=== PATIENT | female | born 1990 | race African-American/Black ===

== ENCOUNTER 2017-04-02 11:21 | Emergency (ER) | payer OTHER ==
[~2017-04-02] VITALS: Ht 165.1 cm; Wt 61.2 kg
[2017-04-02] MEDS ORDERED: NKM (11:23)
[2017-04-02 11:39] VITALS: BP 133/74
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
[2017-04-02 13:07] LABS: BASOPHILS % (AUTO) 0.7 % (0.0-2.0); EOSINOPHILS % (AUTO) 0.2 % (0.0-3.0); LYMPHOCYTES % (AUTO) 9.3 % (20.0-45.0); MEAN CORPUSCULAR HEMOGLOBIN 26.9 PG (27.0-31.0); MEAN CORPUSCULAR HGB CONC 31.4 G/DL (32.0-36.0); MEAN CORPUSCULAR VOLUME 86 FL (80-99); MEAN PLATELET VOLUME 8.3 FL (6.5-10.1); MONOCYTES % (AUTO) 5.5 % (1.0-10.0); NEUTROPHILS % (AUTO) 84.3 % (45.0-75.0); PLATELET COUNT 243 K/UL (150-450); RED CELL DISTRIBUTION WIDTH 12.3 % (11.6-14.8)
[2017-04-02 13:07] LABS: APPEARANCE,URINE TURBID; KETONES,URINE 3+ (NEGATIVE); LEUKOCYTE ESTERASE ,URINE 1+ (NEGATIVE); NITRITE,URINE NEGATIVE (NEGATIVE); PH,URINE 5 (4.5-8.0); PROTEIN,URINE 2+ (NEGATIVE); UROBILINOGEN,URINE 1 MG/DL (0.0-1.0)
[2017-04-02 13:18] LABS: ACETAMINOPHEN < 10 ug/mL (10-30); ALANINE AMINOTRANSFERASE 8 U/L (3-33); ALBUMIN/GLOBULIN RATIO 1.6 (1.0-2.7); ALCOHOL < 10 mg/dL; ANION GAP 16 (5-15); ASPARTATE AMINO TRANSFERASE 14 U/L (5-40); CALCIUM 9.8 mg/dL (8.6-10.2); CARBON DIOXIDE 25 mEQ/L (20-30); CHLORIDE 100 mEQ/L (98-107); CREATININE 0.7 mg/dL (0.5-0.9); GLOMERULAR FILTRATION RATE > 60 mL/min (>60); HEMOLYSIS 2; POTASSIUM 3.3 mEQ/L (3.4-4.9); SODIUM 141 mEQ/L (135-145); TOTAL PROTEIN 8.1 g/dL (6.6-8.7)
[2017-04-02 13:32] LABS: RBC,URINE 0-2 /HPF (0 - 2)
[2017-04-02 13:33] LABS: BACTERIA,URINE FEW /HPF; GRANULAR CASTS,URINE 0-2 /LPF; MUCUS,URINE MODERATE /LPF (NONE/OCC); SQUAMOUS EPITHELIAL CELL,UR MODERATE /LPF (NONE/OCC)
[2017-04-02 14:00] LABS: BILIRUBIN,DIRECT 0.2 mg/dL (0.1-0.3)
[2017-04-02] MEDS ORDERED: NITROFURANTOIN100 M2 ORAL (14:48)
[2017-04-02 17:17] VITALS: BP 129/77
[2017-04-02 21:09] VITALS: BP 132/74
[2017-04-02 23:00] VITALS: BP 128/76
[2017-04-03] VITALS (8 sets, daily range): BP systolic 94–133; BP diastolic 60–78
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
--- NOTE | 2017-04-03 11:38 | General Progress Note ---
Assessment/Plan Status: not improved Assessment/Plan zyprexa 10mg daily cont looking for psych as pt has hx of noncompliance no imminent dts/dto d/w with ED doctor Subjective Constitutional: Reports: no symptoms, Denies: chills, diaphoresis, fever, malaise, other, weakness HEENT: Denies: blurred vision, double vision, ear discharge, ear pain, eye pain , mouth pain, mouth swelling, no symptoms, nose congestion, nose pain, other, tearing, throat pain, throat swelling Cardiovascular: Denies: chest pain, edema, irregular heart rate, lightheadedness, no symptoms, other, palpitations, syncope Respiratory: Denies: SOB at rest, SOB with excertion, cough, no symptoms, orthopnea, other, shortness of breath, sputum, stridor, wheezing Genitourinary: Denies: burning, discharge, flank pain, frequency, hematuria, incontinence, no symptoms, other, pain, urgency Neurologic/Psychiatric: Denies: anxiety, depressed, emotional problems, headache, no symptoms, numbness, other, paresthesia, pre-existing deficit, seizure, tingling, tremors, weakness Endocrine: Denies: excessive sweating, flushing, increased hunger, increased thirst, increased urine, intolerance to cold, intolerance to heat, no symptoms, other, unexplained weight gain, unexplained weight loss Allergies: Coded Allergies: No Known Allergies (Unverified , 04/02/17) Subjective The pt still denies si/hi. she endorses persecutory delusions toward her mom. the pt was given one dose of zyprexa. she was compliant. no agitation. no violent behavior. cooperative. Objective Last 24 Hour Vital Signs Date Time Temp Pulse Resp B/P Pulse Ox O2 Delivery O2 Flow Rate FiO2 04/03/17 11:05 98.3 75 14 103/62 100 Room Air 04/03/17 09:00 81 18 103/71 98 Room Air 04/03/17 05:42 98.0 84 18 114/78 98 Room Air 04/03/17 03:29 98.2 80 18 110/75 98 Room Air 04/03/17 01:10 94 18 133/72 98 Room Air 04/02/17 23:00 98.0 92 18 128/76 98 Room Air 04/02/17 21:09 98.9 94 17 132/74 98 Room Air 04/02/17 17:17 98.8 107 18 129/77 97 Room Air 04/02/17 11:39 98.7 117 19 133/74 97 Room Air Laboratory Tests 04/02/17 11:50: Urine Color Yellow, Urine Appearance Turbid, Urine pH 5, Urine Specific [place] 1.025, Urine Protein 2+H, Urine Glucose (UA) Negative, Urine Ketones 3+H, Urine Occult Blood Negative, Urine Nitrite Negative, Urine Bilirubin Negative, Urine Urobilinogen 1H, Urine Leukocyte Esterase 1+H, Urine RBC 0-2, Urine WBC 5-10H, Urine Squamous Epithelial Cells ModerateH, Urine Bacteria Few, Urine Granular Casts 0-2H, Urine Mucus ModerateH, Urine HCG, Qualitative Negative, Urine Opiates Screen Negative, Urine Barbiturates Screen Negative, Phencyclidine (PCP ) Screen Negative, Urine Amphetamines Screen Negative, Urine Benzodiazepines Screen Negative, Urine Cocaine Screen Negative, Urine Marijuana (THC) Screen Negative 04/02/17 12:50: White Blood Count 7.0, Red Blood Count 4.60, Hemoglobin 12.4, Hematocrit 39.4, Mean Corpuscular Volume 86, Mean Corpuscular Hemoglobin 26.9L, Mean Corpuscular Hemoglobin Concent 31.4L, Red Cell Distribution Width 12.3, Platelet Count 243, Mean Platelet Volume 8.3, Neutrophils (%) (Auto) 84.3H, Lymphocytes (%) (Auto) 9.3L, Monocytes (%) (Auto) 5.5, Eosinophils (%) (Auto) 0.2, Basophils (%) (Auto ) 0.7, Sodium Level 141, Potassium Level 3.3L, Chloride Level 100, Carbon Dioxide Level 25, Anion Gap 16H, Blood Urea Nitrogen 15, Creatinine 0.7, Estimat Glomerular Filtration Rate > 60, Glucose Level 109H, Calcium Level 9.8, Total Bilirubin 1.7H, Direct Bilirubin 0.2, Aspartate Amino Transf (AST/SGOT) 14 , Alanine Aminotransferase (ALT/SGPT) 8, Alkaline Phosphatase 43, Total Protein 8.1, Albumin 5.0, Globulin 3.1, Albumin/Globulin Ratio 1.6, Salicylates Level < 1L, Acetaminophen Level < 10L, Serum Alcohol < 10 Height (Feet): 5 Height (Inches): 5.00 Weight (Pounds): 135 General Appearance: alert, mild distress Neurologic: alert, oriented x 3, responsive, depressed affect Kyree White M.D. April 03, 2017 11:38
[2017-04-03] MEDS ORDERED: ONFI10 MG PO (12:39)
[2017-04-03] MEDS ORDERED: VENLAFAXINE H37.5 MG ORAL (12:39)
[2017-04-03] MEDS ORDERED: ALPRAZOLAM1 MG ORAL (12:40)
== END 2017-04-03 17:25 ==
LOC: EDBD 11:21 → EMR 11:50
DX: R46.89 Other symptoms and signs involving appearance and behavior (principal); N39.0 Urinary tract infection, site not specified; E87.6 Hypokalemia; F41.9 Anxiety disorder, unspecified
CPT/HCPCS: 36415; 80053; 80300; 80329; 81003; 81025; 82248; 85025; 99285